=== PATIENT | female | born 1995 ===

== ENCOUNTER 2020-06-29 20:09 | Outpatient (CLI) | payer MEDICAID ==
[2020-06-29 21:18] LABS: Basophils # (Auto) 0.1 K/mm3 (0.0-0.1); Basophils % (Auto) 0.8 % (0.0-1.8); Eosinophils % (Auto) 0.4 % (0.0-4.3); Hemoglobin 7.1 gm/dl (10.1-14.3); Lymphocytes # (Auto) 1.7 K/mm3 (1.2-5.4); Lymphocytes % (Auto) 19.5 % (13.4-35.0); Mean Corpuscular HGB Conc 30 % (30-34); Monocytes # (Auto) 0.6 K/mm3 (0.0-0.8); Monocytes % (Auto) 7.1 % (0.0-7.3); Platelet Count 218 K/mm3 (140-440); Red Blood Count 3.78 M/mm3 (3.65-5.03)
[2020-06-29 21:20] LABS: Mean Corpuscular Volume 64 fl (79-97); Red Cell Distribution Width 20.6 % (13.2-15.2)
[2020-06-30] MEDS ORDERED: SODIUM CHLORIDE 0.9% 500 ML 500 ML IV ONE (00:12)
--- NOTE | 2020-06-30 00:13 | Emergency Department Report ---
ED General Adult HPI - General Chief complaint: Recheck/Abnormal Lab/Rx Stated complaint: BLOOD TRANSFUSION PUI?: No Time Seen by Provider: 06/30/20 00:10 Source: patient Mode of arrival: Ambulatory Limitations: No Limitations - History of Present Illness Initial comments: Patient is a 25-year-old female that presents emergency room for a transfusion. Patient states that her blood count has been dropping. Patient states she is 37 weeks and her [facility] sent her for admission for blood transfusion. Patient states she goes to [facility]. Patient's only complaint is that she is having fatigue. Patient states she is a G2, P1. Patient denies vaginal bleeding. Patient denies abdominal pain. Patient denies any physical complaints. Patient denies chest pain shortness of breath. Patient states she felt baby move normally. Patient denies recent travel. Patient denies recent international travel. [place] ent denies exposure to the novel coronavirus. Patient denies sick contacts. Patient denies fever and chills. Patient denies cough. Patient denies diarrhea. Patient denies coming in contact with anybody with symptoms of the novel coronavirus. -: Sudden - Related Data Allergies Allergy/AdvReac Type Severity Reaction Status Date / Time No Known Allergies Allergy Unverified 06/29/20 20:31 ED Review of Systems ROS: Stated complaint: BLOOD TRANSFUSION Other details as noted in HPI Constitutional: malaise. denies: chills, fever Eyes: denies: eye pain, eye discharge, vision change ENT: denies: ear pain, throat pain Respiratory: denies: cough, shortness of breath, wheezing Cardiovascular: denies: chest pain, palpitations Endocrine: no symptoms reported Gastrointestinal: denies: abdominal pain, nausea, diarrhea Genitourinary: denies: urgency, dysuria, discharge Musculoskeletal: denies: back pain, joint swelling, arthralgia Skin: denies: rash, lesions Neurological: denies: headache, weakness, paresthesias Psychiatric: denies: anxiety, depression Hematological/Lymphatic: denies: easy bleeding, easy bruising ED Past Medical Hx - Past Medical History Previous Medical History?: No - Surgical History Past Surgical History?: Yes Additional Surgical History: C-Sec X 1 - Family History Family history: no significant - Social History Smoking Status: Never Smoker Substance Use Type: None ED Physical Exam - General Limitations: No Limitations General appearance: alert, in no apparent distress - Head Head exam: Present: atraumatic, normocephalic - Eye Eye exam: Present: normal appearance - ENT ENT exam: Present: mucous membranes moist - Neck Neck exam: Present: normal inspection - Respiratory Respiratory exam: Present: normal lung sounds bilaterally. Absent: respiratory distress - Cardiovascular Cardiovascular Exam: Present: regular rate, normal rhythm. Absent: systolic murmur, diastolic murmur, rubs, gallop - GI/Abdominal GI/Abdominal exam: Present: soft, distended (Gravid abdomen noted), normal bowel sounds - Extremities Exam Extremities exam: Present: normal inspection - Back Exam Back exam: Present: normal inspection - Neurological Exam Neurological exam: Present: alert, oriented X3 - Psychiatric Psychiatric exam: Present: normal affect, normal mood - Skin Skin exam: Present: warm, dry, intact, normal color. Absent: rash ED Course Vital Signs 06/29/20 06/30/20 20:29 00:05 Temperature 98.5 F 97.9 F Pulse Rate 99 H 97 H Respiratory 18 15 Rate Blood Pressure 110/56 Blood Pressure 112/70 [Left] O2 Sat by Pulse 98 100 Oximetry - Reevaluation(s) Reevaluation #1: I discussed all results with patient. I discussed plan of care with patient. Patient agrees with plan of care and admission. Patient to be admitted to the [facility], [facility]. 06/30/20 00:17 Reevaluation #2: Bridge orders were placed and the hospital states that their policy for the patient to be discharged from the ER and then the patient to be transported to L&D and be readmitted that way versus being admitted from the ER as bridge orders. Patient will be discharged from the ER and patient will be transported directly to L&D for admission. 06/30/20 01:31 - Consultations Consultation #1: I discussed case with Dr. Brooks, [facility]. Dr. Brooks agrees to admit t he patient to [facility]. Bridge orders placed 06/30/20 00:15 ED Medical Decision Making - Lab Data Result diagrams: 06/29/20 20:34 - Medical Decision Making Patient is 25-year-old female that presents emergency room for admission for a transfusion. Patient's [facility] sent to the hospital for evaluation. I discussed the case with her [facility] group and they agreed to admit her. Patient admitted to [facility]. Patient's labs are significant for an H&H of 7.1/24. Patient was found to be tachycardic. Patient is O+. Patient was typed and screened and 1 unit of blood was ordered. - Differential Diagnosis Anemia, anemia, tachycardia. Critical Care Time: Yes Critical care time in (mins) excluding proc time.: 35 Critical care attestation.: If time is entered above; I have spent that time in minutes in the direct care of this critically ill patient, excluding procedure time. Critical Care Time: 35 minutes ED Disposition Clinical Impression: Tachycardia Anemia Qualifiers: Anemia type: unspecified type Qualified Code(s): D64.9 - Anemia, unspecified Qualifiers: Weeks of gestation: 37 weeks Qualified Code(s): Z3A.37 - 37 weeks gestation of Disposition: TO HOME OR SELFCARE Is pt being admited?: No Does the pt Need Aspirin: No Condition: Critical Instructions: Anemia (ED) Additional Instructions: Patient to be discharged from the ER and go directly to L&D for a direct admit. Referrals: PRIMARY CARE, [Primary Care Provider] - 2-3 Days Time of Disposition: 01:33
[2020-06-30 02:24] VITALS: BP 104/58
== END 2020-06-30 04:28 | disposition home or self-care (01) ==
LOC: TRG 20:09 → ED 20:09 → LD 06-30 03:19 → TRG 06-30 04:28
PROVIDERS: ATTEND Obstetrics & Gynecology
DX: D50.0 Iron deficiency anemia secondary to blood loss (chronic) (principal)
CPT/HCPCS: 36415; 84702; 85025; 86850; 86900; 86901; 86920